=== PATIENT | female | born 2000 | race Caucasian/White ===

== ENCOUNTER 2020-12-10 17:34 | Emergency (ER) | payer OTHER, SELFPAY ==
--- NOTE | ~2020-12-10 | XR_ITS ---
XR chest 1V portable DATE: 12/10/2020 20:23 INDICATION: Fever, weakness, sore throat. TECHNIQUE: Portable upright AP chest on 12/10/2020 at 2016 hours COMPARISON: None FINDINGS: Normal heart size. No hilar or mediastinal enlargement. No pulmonary infiltrate or consolid ation, pleural effusion or pulmonary vascular congestion or pneumothorax. IMPRESSION: No active cardiopulmonary disease Reviewed, dictated and finalized at location A.
[2020-12-10 17:37] VITALS: BP 91/50; PULSE 128; RESP 20; TEMP 38.5; O2SAT 100
[2020-12-10] MEDS: ONDANSETRON INJ 4 MG/2 ML VIAL IV PUSH (17:55)
[2020-12-10] MEDS: SODIUM CHLORIDE 0.9% IV 1,000 ML 999 ML IV CONT ×2 (18:04→19:06)
[2020-12-10 18:33] VITALS: TEMP 37.4
--- NOTE | 2020-12-10 18:45 | ED.URI ---
HPI - URI/Sore Throat General Chief Complaint: Nausea/Vomiting/Diarrhea Stated Complaint: fever, sore throat, bodyaches Time Seen by Provider: 12/10/20 17:55 Source: patient Mode of arrival: ambulatory Limitations: no limitations History of Present Illness HPI Narrative: Patient is a 20-year-old female who presents complaining of sore throat, body aches, fever, nausea and vomiting x1 to 2 days. She denies known exposure to Covid. She denies taking [id number] medications prior to arrival. She reports increasingly feeling poor starting this a.m. She denies significant medical history. MD elicited complaint: fever, sore throat and sinus pain Related Data Allergies Allergy/AdvReac Type Severity Reaction Status Date / Time No Known Allergies Allergy Verified 12/10/20 17:40 Review of Systems Review of Systems: Narrative: CONSTITUTIONAL: Reports fever and chills and generalized body aches EYES: Denies visual changes, redness, or discharge. ENT: Reports sore throat CARDIOVASCULAR: Denies chest pain, palpitations, or edema. RESPIRATORY: Denies cough or dyspnea. GASTROINTESTINAL: Denies abdominal pain, nausea, vomiting, or diarrhea. GENITOURINARY: Denies dysuria or hematuria. SKIN: Denies rash or itching. MUSCULOSKELETAL: Denies back pain, joint pain, or myalgia. NEUROLOGIC: Denies headache, numbness, dizziness, or weakness. PSYCHIATRIC: Denies anxiety or depression. [facility] Past Medical History Medical History (Updated 12/10/20 @ 18:52 by JED Barriga) No significant past medical history Surgical History Surgical History (Updated 12/10/20 @ 18:48 by JED Barriga) No significant past surgical history Family History Family History (Updated 12/10/20 @ 18:48 by JED Barriga) Other No significant family history Social History Social History (Updated 12/10/20 @ 18:48 by JED Barriga) Smoking status: Never smoker Alcohol intake: never Substance use: never Living arrangements: with roommate(s) Occupation/Education: occupation Gender identity (if verbalized by the patient): Female Comments At the time of signature, I have reviewed and agree with nursing past medical, surgical, social, and family history unless otherwise noted. Please see nursing chart for further information. There is no relevant family history pertinent to the presenting complaint. Exam Narrative: Exam Narrative: GENERAL: Well-appearing, well-nourished, and in no acute distress. HEAD: Normocephalic, atraumatic. EYES: EOMI. No redness or drainage. Conjunctiva are normal. ENT: Mucous membranes pink and moist. Nares clear. No rhinorrhea. TMs normal bilaterally. Throat with mild edema and erythema. Uvula midline. NECK: AROM. Supple. No lymphadenopathy. CHEST: No respiratory distress. Clear to auscultation. HEART: Regular rate and rhythm. GI: Soft, nontender without rebound, or guarding. No distention. Bowel sounds normal in all quadrants. MUSCULOSKELETAL: No bony tenderness. EXTREMITIES: Normal range of motion. No edema. SKIN: Warm, dry, no rash. NEURO: No focal deficits. Alert and oriented x3. Gait steady. PSYCH: Normal affect. No signs of depression or anxiety. Course Vital Signs Vital signs: Vital Signs Temperature 38.5 C H 12/10/20 17:37 Pulse Rate 128 H 12/10/20 17:37 Respiratory Rate 20 12/10/20 17:37 Blood Pressure 91/50 L 12/10/20 17:37 Pulse Oximetry 100 12/10/20 17:37 Temperature 38.5 C H 12/10/20 17:37 Pulse Rate 128 H 12/10/20 17:37 Respiratory Rate 20 12/10/20 17:37 Blood Pressure 91/50 L 12/10/20 17:37 Pulse Oximetry 100 12/10/20 17:37 Reviewed MDM - URI/Sore Throat MDM Narrative Medical decision making narrative: Influenza and rapid strep are negative. Discussed with patient possibility of Covid. Covid testing completed at this time. Patient is aware of the need for quarantine. Patient hydrated well and pain and fever reduc
[2020-12-10 19:05] VITALS: TEMP 38.3
[2020-12-10] MEDS: IBUPROFEN IV 800 MG/200 ML 800 MG/200 ML BAG 400 MG IVPB (19:05)
[2020-12-10 20:06] VITALS: BP 124/78; PULSE 71; RESP 16; O2SAT 97
[2020-12-11 19:13] LABS: SARS-CoV-2 RNA PCR Negative
== END 2020-12-10 21:01 | disposition home or self-care (01) ==
PROVIDERS: Emergency Provider Nurse Practitioner
DX: J06.9 Acute upper respiratory infection, unspecified (principal); Z20.822 Contact with and (suspected) exposure to COVID-19
CPT/HCPCS: 71045; 87804; 96361; 96365; 96367; 96375; 99284; C9803; J0131; J1741; J2405; J7030; U0003; U0005